=== PATIENT | male | born 1980 | race Caucasian/White ===

== ENCOUNTER 2023-09-17 20:22 | Emergency (ER) | payer MEDICAID ==
[~2023-09-17] VITALS: Ht 162.6 cm; Wt 68.0 kg
[2023-09-17 20:40] VITALS: BP 131/85; PULSE 76; RESP 17; TEMP 97.8; O2SAT 98
[2023-09-17] MEDS ORDERED: CEPH-588 PO (20:52)
[2023-09-17] MEDS ORDERED: IBUP-1842 PO (20:52)
[2023-09-17] MEDS ORDERED: ACET-10509 PO (20:52)
[2023-09-17] MEDS ORDERED: ONDA-188 PO (20:52)
[2023-09-17 21:05] VITALS: BP 125/82; PULSE 76; RESP 12; TEMP 98; O2SAT 99
== END 2023-09-17 21:05 | disposition home or self-care (01) ==
LOC: MED 20:22
DX: S01.00XA Unspecified open wound of scalp, initial encounter (principal); L08.89 Other specified local infections of the skin and subcutaneous tissue; Z79.899 Other long term (current) drug therapy; Z79.1 Long term (current) use of non-steroidal anti-inflammatories (NSAID); Z79.2 Long term (current) use of antibiotics; X58.XXXA Exposure to other specified factors, initial encounter; Y92.89 Other specified places as the place of occurrence of the external cause; Y93.89 Activity, other specified; Y99.8 Other external cause status
CPT/HCPCS: 99283

== ENCOUNTER 2024-06-29 20:41 | Emergency (ER) | payer MEDICAID, OTHER ==
[~2024-06-29] VITALS: Ht 160 cm; Wt 66.2 kg
[~2024-06-29 20:41] MED LIST: ACET500T99 PO; CEPH-588 PO; IBUP-1842 PO; ONDA-188 PO
[2024-06-29 20:47] VITALS: BP 133/79; PULSE 63; RESP 18; TEMP 98; O2SAT 99
[2024-06-29 21:42] LABS: APPEARANCE,URINE CLEAR (CLEAR); BILIRUBIN,URINE NEGATIVE (NEGATIVE); BLOOD, URINE NEGATIVE (NEGATIVE); COLOR,URINE YELLOW (YELLOW); LEUKOCYTE ESTERASE ,URINE NEGATIVE (NEGATIVE); NITRITE, URINE NEGATIVE (NEGATIVE); PROTEIN,URINE NEGATIVE (NEGATIVE); UGLUCOSE NEGATIVE (NEGATIVE); UROBILINOGEN,URINE 0.2 EU/dL (0.2 - 1)
[2024-06-29] MEDS: KETOROLAC 30 MG/ML VIAL IM ONE (21:47)
[2024-06-29 21:51] LABS: BASOPHILS # (AUTO) 0.1 K/uL (0.00-0.22); BASOPHILS % (AUTO) 0.5 % (0.0-2.0); EOSINOPHILS # (AUTO) 0.7 K/uL (0-0.4); EOSINOPHILS % (AUTO) 5.8 % (0.0-4.0); HEMATOCRIT 46.1 % (36-52); HEMOGLOBIN 15.9 g/dL (12.0-18.0); LYMPHOCYTES # (AUTO) 3.2 K/uL (2.0-11.5); LYMPHOCYTES % (AUTO) 27.7 % (20.5-51.1); MEAN CORPUSCULAR HEMOGLOBIN 30 pg (27-31); MEAN CORPUSCULAR HGB CONC 35 g/dL (33-37); MEAN CORPUSCULAR VOLUME 87.1 fL (80-94); MONOCYTES # (AUTO) 0.8 K/uL (0.8-1.0); MONOCYTES % (AUTO) 6.6 % (1.7-9.3); NEUTROPHILS # (AUTO) 6.9 K/uL (1.8-7.7); NEUTROPHILS % (AUTO) 59.4 % (42.2-75.2); PLATELET COUNT (AUTO) 330 K/uL (140-450); RED BLOOD CELL COUNT(AUTO) 5.29 MIL/uL (4.20-6.10); RED CELL DISTRIBUTION WIDTH 14.9 % (11.6-13.7); WHITE BLOOD COUNT (AUTO) 11.6 K/uL (4.8-10.8)
[2024-06-29 22:05] LABS: ANION GAP 11.3 (8-16); CALCIUM 8.4 mg/dL (8.5-10.1); CARBON DIOXIDE 30.3 mmol/L (21-32); POTASSIUM 4.6 mmol/L (3.5-5.1)
[2024-06-29] MEDS ORDERED: IBUP-2213 PO (22:38)
[2024-06-29] MEDS ORDERED: AMOX1TAB8 PO (22:38)
== END 2024-06-29 22:50 | disposition home or self-care (01) ==
LOC: MED 20:41
DX: L03.311 Cellulitis of abdominal wall (principal); Z90.49 Acquired absence of other specified parts of digestive tract; Z79.899 Other long term (current) drug therapy
CPT/HCPCS: 36415; 80048; 81003; 83690; 85025; 96372; 99283; J1885